=== PATIENT | female | born 1930 | race Caucasian/White ===

== ENCOUNTER 2016-09-16 20:55 | Inpatient (IN) | payer MEDICARE, OTHER ==
[~2016-09-16] VITALS: Ht 160 cm; Wt 59.4 kg
[~2016-09-16 20:55] MED LIST: BACI28.4 TOPICAL; HYDR-3479 PO; OXYM15MI4 NS
[2016-09-16 20:59] VITALS: BP 150/103; PULSE 72; RESP 32; O2SAT 95
--- NOTE | 2016-09-16 21:05 | ED.REPORT ---
HPI-Extremity Problem Upper Date of Service September 16, 2016 ED Provider: Dr. Rooney Pt is an 86 y/o female w/ a hx of Parkinson's disease, multiple falls, presenting to the ED via EMS with family due to left upper arm injury which occurred this evening. The family reports that the patient fell likely onto her left arm this evening and medics report an obvious deformity to the left humerus. She does not take anticoagulants. Personal history unable to be obtained secondary to patient condition. Nursing Notes Stated Complaint: LEFT SHOULDER DEFORMITY/FALL Chief Complaint: Extremity Trauma Nursing Notes Reviewed: Yes Allergies: Coded Allergies: alprazolam (Verified Allergy, Unknown, 09/16/16) Scheduled ([domperidone]) 10 MG PO MORNING Aspirin (Aspirin) 325 Mg Tablet 325 MG PO DAILY Atorvastatin (Lipitor) 40 Mg Tablet 40 MG PO DAILY Carbidopa/Levodopa 25-100 mg (Sinemet 25-100 mg) 1 Each Tablet 2 TABLET PO MORNING Carbidopa/Levodopa 25-100 mg (Sinemet 25-100 mg) 1 Each Tablet 1.5 TABLET PO TID Carbidopa/Levodopa 25-100 mg (Sinemet 25-100 mg) 1 Each Tablet 1 TABLET PO HS Donepezil (Donepezil) 5 Mg Tablet 5 MG PO HS Gabapentin (Gabapentin) 100 Mg Capsule 200 MG PO TID Mirtazapine (Mirtazapine) 15 Mg Tablet 15 MG PO HS Pantoprazole DR (Pantoprazole DR) 20 Mg Tablet.dr 20 MG PO DAILY Polyethylene Glycol 3350 (Miralax) 17 Gm Powd.pack 17 GM PO DAILY Miscellaneous Medications Cholecalciferol (Vitamin D3) (Vitamin D3) 1,000 Unit Tab.chew 1,000 UNIT PO General Time Seen by MD: 21:04 Chief Complaint Shoulder injury left Hx Obtained From: Patient, Other family..., EMS Arrived By: Ambulance Onset Occurred: 1 - 4 hours ago Symptom Duration: Since onset Location: : Arm left Quality: Painful Severity: Current: Severe Severity: Maximum: Severe Exacerbated by: Range of motion Past Medical History Past Medical History Parkinson's disease Colon CA s/p bowel resection Past Surgical History Bowel resection - 3 subsequent abdominal surgeries - unspecified Mastectomy Hysterectomy Smoking History Never Smoker Social History Alcohol Use: "Social" Review of Systems Musculoskeletal: Reports: Extremity pain, Extremity swelling Skin: Reports Bruising Complete sys rev & neg: except as marked. Physical Exam Initial Vital Signs Vital Signs (First) Date Time Temp Pulse Resp B/P Pulse Ox O2 Delivery O2 Flow Rate FiO2 09/16/16 20:59 36.9 72 32 150/103 95 Nasal Cannula 2 Initial VS: Reviewed, Vital signs abnormal Head / Eyes: Atraumatic, Normocephalic, PERRL ENT: Mucous membranes moist, Conjunctiva normal, No scleral icterus Neck: Supple, Full range of motion Respiratory: Breath sounds normal, Clear to auscultation, No respiratory distress Cardiovascular: Regular rate & rhythm, Heart sounds normal, Intact distal pulses Abdomen / GI: Soft, Non-tender Skin: Warm, Dry, No cyanosis Psychiatric: Mood/affect normal, Behavior normal General/Constitutional: Awake, Cooperative, Not toxic appearing Distress / Hydration: Positive: Distress moderate Appearance / Presentation: Positive: Uncomfortable Uncontrollably moving about in bed aggravating shoulder injury. Much improved after pain management. Sedated but arousable, no longer thrashing. Upper Extremity / MS: Neurologic intact, Vascular intact Huge hematoma and deformity over upper left arm. Neurologic: No motor deficits, No sensory deficits Grossly parkinsonian Interpretation & Diagnostics X-Ray Interpretation Xray Interpretation: IMPRESSION: Complex comminuted mildly angulated proximal left humeral metaphyseal fracture with large butterfly fragment. No glenohumeral joint involvement. Dictated by: Nicolas Johns M.D. on 09/16/2016 at 21:34 Approved by: Nicolas Johns M.D. on 09/16/2016 at 21:36 Study Performed: 2 views X-Ray Ordered: Humerus left Interpretation / Wet Read by: Interpret - Radiologist Xray Interpretation: S/p reduction and splinting Mildy reduction of the left humeral fracture Study Performed: 2 views X-Ray Ordered: Humerus left Interpretation / Wet Read by: Wet read ED physician Procedures Reduction Left Humerus Time: 21:25 Procedure Performed by: ED physician Consent / Setup / Site Prep: Consent from spouse, Time-out performed, Oxygen administered, Pulse oximeter applied, court recording monitor applied, Hand hygiene observed, Stand sterile technique Procedural Sedation/Analgesia: Analgesia: Dilaudid Post-Procedure / Complications: NV intact post-procedure, Procedure successful , X-ray partial reduction, No complications, Tolerated procedure well, Patient stable Splint Application - Fx Mgt Time: 21:25 Procedure Performed by: ED physician Precise Anatomic Location: Left humerus Type of Immobilization: Coaptation Definitive Fracture Care: Performed by me Post-Procedure / Complications: Cap refill normal, Post splint vascular nl, Post splint neuro nl, Condition improved, Tolerated procedure well, Patient stable Re-Eval/Medical Decision Med Decision/Clinical Course 86-year-old severe parkinsonism presents after a ground-level mechanical fall with obvious fracture to the upper left arm. She is unable to control her movements is grinding bone ends repetitively, unable to be restrained at this point. She was given pain meds for early after arrival with improvement and is no longer moving the bone ends vigorously. There is a substantial hematoma in the upper arm. X-ray was obtained and shows a comminuted fracture of the upper humerus. A coaptation splint was placed and some reduction achieved. Distal neurovascular were intact pre-and post. X-ray shows still some posterior angulation but fairly good lateral alignment and length alignment. Hope was to get her home to [place] for surgical treatment in [place], but she remains in significant pain or oversedated with very little clinical status in between those states. Family is unable to manage her given her severe gait disturbance motion disturbance and ongoing pain needs. Admitted now for pain control and consideration of surgical therapy this morning. Consultation to orthopedic surgery in the morning. Admitted to medicine service. Re-Evaluation/Progress #1: Time of Eval: 23:45 Re-Evaluation/Progress Note: Pt rechecked. Pt sleeping comfortably. Informed family of plan to increase length of splint. Re-Evaluation/Progress #2: Time of Eval: 00:30 Re-Evaluation/Progress Note: Splint placement improved. Re-Evaluation/Progress #3: Time of Eval: 01:18 Re-Evaluation/Progress Note: Pt rechecked. Informed family of need for admission. Family understands and agrees with plan for admission. All questions addressed. 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 I, Dr. Rooney personally performed the history, physical exam and medical decision-making; I reviewed and confirmed the accuracy of the information in the transcribed note. Signed by Jos Burnett, 09/16/162114 Samuel Rooney MD September 16, 2016 21:05 DANIEL CHAN September 16, 2016 21:09
[2016-09-16] MEDS ORDERED: HYDROmorphone 1 mg/mL Inj IVPUSH ONE (21:10)
[2016-09-16] MEDS ORDERED: Ondansetron 2 mg/mL 2 mL Inj IVPUSH ONE (21:10)
[2016-09-16] MEDS: HYDROmorphone 0.5 mg/0.5 mL iSecure Syringe IVPUSH PRN (21:22)
--- NOTE | 2016-09-16 21:43 | DRSVH ---
PROCEDURE: X-RAY LEFT HUMERUS, MINIMUM TWO VIEWS ([id number]) INDICATIONS: fall TECHNIQUE: 2 views of the humerus were acquired. COMPARISON: None. FINDINGS: Bones: Complex comminuted proximal left humeral metaphyseal fracture with posterior lateral attenuati on of the distal most fragment. Large mildly displaced butterfly fragment. No extension to the glenoh umeral joint which remains grossly intact. Osteopenia. Soft tissues: No suspicious soft tissue calcifications. IMPRESSION: Complex comminuted mildly angulated proximal left humeral metaphyseal fracture with large butterfly fragment. No glenohumeral joint involvement. Dictated by: Nicolas Johns M.D. on 09/16/2016 at 21:34 Approved by: Nicolas Johns M.D. on 09/16/2016 at 21:36
[2016-09-16 22:01] VITALS: BP 118/45; PULSE 80; RESP 9; O2SAT 98
[2016-09-17] VITALS (9 sets, daily range): BP systolic 105–161; BP diastolic 50–77; PULSE 74–90; RESP 14–19; O2SAT 90–98
[2016-09-17] MEDS ORDERED: Polyethylene Glycol (PEG) 17 Gm Powder PO PRN (01:30)
[2016-09-17] MEDS ORDERED: Alum-Mag Hydrox-Simeth 30 mL Suspension PO PRN (01:30)
[2016-09-17] MEDS ORDERED: Ondansetron 2 mg/mL 2 mL Inj IVPUSH PRN (01:30)
--- NOTE | 2016-09-17 02:16 | PCM.HPMED ---
Subjective Date of Service September 17, 2016 Primary Provider: Admitting Physician: Sarthak Vogel MD Primary Care Physician: Other,Physician Attending Physician: Sarthak Vogel MD Chief Complaint: GLF with fracture L Humerus. History of Present Illness: Pt is an 86 y/o female w/ a hx of Parkinson's disease, multiple falls, presenting to the ED via EMS with family due to left upper arm injury which occurred this evening. The family reports that the patient fell likely onto her left arm this evening and they report an obvious deformity to the left humerus. She does not take anticoagulants. In the emergency department patient's vitals were as follows; temperature 36.9 C , pulse 72, respiratory rate 32, blood pressure 150/103, pulse ox 95 on 2 L nasal cannula. No labs were taken. Left humerus x-ray was taken showing a Complex comminuted mildly angulated proximal left humeral metaphyseal fracture with large butterfly fragment. No glenohumeral joint involvement. Patient was given IV Dilaudid for pain control and Zofran for nausea. Review of Systems: A comprehensive review of systems was conducted with the patient and found to be negative except as above in the History of Present Illness. Allergies Coded Allergies: alprazolam (Verified Allergy, Unknown, 09/16/16) Home Medications Sinemet (unsure dosage) 2 pills at 7 AM, one half pills at 10 AM, one half pills at 1 PM, one half pills at 5 PM, 1 pill at 9 PM Domeprazil 5 mg half tab at 9 PM Mirtazapine 5 mg half tab at 9 PM Gabapentin 100 mg 2 tabs at 7 AM, 2 tabs at 10 AM, 2 tabs at 9 AM Aspirin 325 one tablet and 7 AM, Domperione 10 mg 1 tab 7 AM MiraLAX one capsule in the morning Atorvastatin 40 mg 9 PM Pantoprazole 20 mg 7 AM Vitamin D one pill in the morning PMH Parkinson's TIA GERD Colon cancer with resection Surgical History Hysterectomy in 76 Mastectomy in 84 Colon resection in Bowel surgery 2002 for scar tissue Bowel surgery in 2004 for scar tissue Neuro stimulator implanted 2008 Bowel surgery 2009 for scar tissue Family History Could not report. Social History Hx Alcohol Use: Yes (1/2 glass of wine a day) Hx Substance Use: No Smoking Status: Never Smoker Exam Vital Signs Vital Sign - Last Date Time Temp Pulse Resp B/P Pulse Ox O2 Delivery O2 Flow Rate FiO2 5/24/17 02:04 79 18 117/60 95 Room Air 09/16/16 22:01 2 09/16/16 20:59 36.9 Exam General: Frail elderly lady lying in bed currently in no acute distress, drowsy , appropriately interactive intermittently. HEENT: Normocephalic, atraumatic. External ears without defect. Pupils equal, round, and reactive to light and accommodation. Anicteric sclerae, moist conjunctivae, and no lid lag. Oropharynx free of erythema and cobble stoning with moist mucosa. Neck: Supple with full range of motion. No jugular venous distension. No bruits. No lymphadenopathy or thyromegaly. Cardiovascular: Regular rate and rhythm with no murmurs, rubs, or gallops appreciated Pulmonary: Clear to auscultation bilaterally with no crackles, wheezes, or rhonchi. Normal respiratory effort with no use of accessory muscles. Abdomen: Bowel tones present. Soft, nontender, nondistended. No hepatosplenomegaly or masses appreciated. Extremities: No clubbing, cyanosis, edema, or lymphadenopathy appreciated. Left extremity splinted and wrapped. Skin: Normal temperature, turgor, and texture; no rash, ulcers, or subcutaneous nodules appreciated. Neurological: Cranial nerves grossly intact. Normal muscle strength, tone, and bulk. Reflexes, coordination, and sensory function within normal limits. No known gait impairment. Psychiatric: Normal mood and affect. Alert and oriented to person, place, and time. Assessment & Plan Pt is an 86 y/o female w/ a hx of Parkinson's disease, multiple falls, presenting to the ED via EMS with family due to left upper arm injury which occurred this evening. The family reports that the patient fell likely onto her left arm this evening and they report an obvious deformity to the left humerus. She does not take anticoagulants. Patient's states that fell and landed on the carpet as she normally does however this time she broke her arm. She ambulates with a walker however she was not using it at the time. Patient's denies recent illness, fever, chills, cough, nausea, vomiting, diaphoresis, chest pain, shortness of breath, abdominal pain, change in bowel or bladder function. Patient is admitted and admitted under observation status. Her was adamant that if by morning patient is less groggy and able to be transported that he would prefer being seen in [place] by orthopedic surgery. The lactic acid is drawn glad to 2.4 mg nightly redraw 1. Complex comminuted left proximal left humeral metaphyseal fracture, present on admission. active. - Left humerus x-ray was taken showing a Complex comminuted mildly angulated proximal left humeral metaphyseal fracture with large butterfly fragment. No glenohumeral joint involvement. - Reduced, wrapped and splinted in the ED. - Patient was given IV Dilaudid for pain control. - 2. Parkinson's disease, present on admission. Active. - Patient to continue home meds. - Deep brain stimulator in place with battery pack. 3. History of TIA. - Continue home aspirin and statin. 4. History of colon cancer with resection. 5. History of gastroesophageal reflux disease. Acetaminophen for mild pain when necessary. Bowel regimen Senna and MiraLAX scheduled and PRN. Zofran when necessary for nausea and vomiting. SubQ heparin held for now. SCDs in place. High-risk medications: IV Dilaudid. Disposition: Patient has been admitted under observation status. Patient will likely be discharged voluntarily tomorrow morning, however is dependent upon ambulatory status and mobility. Discharge under the care of to [place] most likely tomorrow. Pain Evaluation: Adequate Pain Control Resuscitation Status: CPR: Attempt Resuscitation Attending Statement The patient was seen and examined together with Dr. Ames on 09/17 and I agree with the history, exam and plan as outlined in the note above. PEÑA AMES DO September 17, 2016 02:15 Sarthak Vogel MD September 17, 2016 03:33
[2016-09-17] MEDS ORDERED: CHOL10008 PO (03:14)
[2016-09-17] MEDS ORDERED: LIP40 PO (03:14)
[2016-09-17] MEDS ORDERED: ASPI325T32 PO (03:14)
[2016-09-17] MEDS ORDERED: domperidone PO (03:14)
[2016-09-17] MEDS ORDERED: MIRT15TA6 PO (03:14)
[2016-09-17] MEDS ORDERED: GABA-500 PO (03:14)
[2016-09-17] MEDS ORDERED: POLY17PO6 PO (03:14)
[2016-09-17] MEDS ORDERED: DONE5TAB30 PO (03:14)
[2016-09-17] MEDS ORDERED: PANT20TA2 PO (03:14)
[2016-09-17] MEDS ORDERED: LVCR25100 PO ×3 (03:14)
[2016-09-17 07:23] LABS: BASOPHILS % (AUTO) 0.4 % (0-3); EOSINOPHILS % (AUTO) 0.2 % (0-5); MONOCYTES % (AUTO) 15.9 % (4-12); Mean Corpuscular Hemoglobin 32.7 pg (27.0-35.0); Mean Corpuscular Volume 98.4 fL (81-100); Platelet Count 159 bil/L (150-400)
[2016-09-17 07:36] LABS: INR 0.93 ratio
[2016-09-17] MEDS: HYDROmorphone 0.5 mg/0.5 mL iSecure Syringe IVPUSH PRN ×4 (08:04→17:43)
--- NOTE | 2016-09-17 08:13 | PCM.CONSUR ---
Subjective Date of Service: September 17, 2016 History of Present Illness Coreen Rouse is an 86 y/o female w/ a hx of Parkinson's disease, multiple falls , presenting to the ED via EMS with family due to left upper arm injury which occurred yesterday after falling from standing. This fall was unwitnessed and orthopedics was consulted given her left proximal humerus fracture. The patient states that their pain is a sharp in nature and mild/moderate in severity localized to the anterior and aspect of the left shoulder without radiation. Moreover, the pain is exacerbated by activities, especially with movement. Rest seems to improve the symptoms. There is no reports numbness, tingling, or weakness to the affected distal upper extremity. The patient denies any fever, chills, nausea, vomiting, chest pain, shortness of breath, or calf tenderness. Previous treatment has included: Coaptation splint and sling placed in ER Work/hobbies/sports include: Presents with Reason for Consultation left shoulder pain Allergy Allergies: Coded Allergies: alprazolam (Verified Allergy, Unknown, 09/16/16) Medications ([domperidone]) 10 MG PO MORNING (Reported) Last Taken: 10 MG on 09/16/16 07 Aspirin (Aspirin) 325 Mg Tablet 325 MG PO DAILY (Reported) Last Taken: 325 MG on 09/16/16 0700 Atorvastatin (Lipitor) 40 Mg Tablet 40 MG PO DAILY (Reported) Last Taken: 40 MG on 09/17/16 0100 Carbidopa/Levodopa 25-100 mg (Sinemet 25- 100 mg) 1 Each Tablet 2 TABLET PO MORNING (Reported) Last Taken: 2 tab on 09/16/16 07 Carbidopa/Levodopa 25-100 mg (Sinemet 25- 100 mg) 1 Each Tablet 1.5 TABLET PO TID (Reported) Last Taken: Unknown Dose on 09/16/16 Carbidopa/Levodopa 25-100 mg (Sinemet 25-100 mg) 1 Each Tablet 1 TABLET PO HS (Reported) Last Taken: 1 tab on 09/17/16 010 Cholecalciferol (Vitamin D3) (Vitamin D3) 1,000 Unit Tab.chew 1,000 UNIT PO (Reported) Last Taken: 1,000 IU on 09/16/16 07 Donepezil (Donepezil) 5 Mg Tablet 5 MG PO HS (Reported) Last Taken: 5 MG on 09/17/1699 Gabapentin (Gabapentin) 100 Mg Capsule 200 MG PO TID (Reported) Last Taken: 200 MG on Unknown Date & Time Mirtazapine (Mirtazapine) 15 Mg Tablet 15 MG PO HS (Reported) Last Taken: 15 MG on 09/17/[address] (Pantoprazole DR) 20 Mg Tablet.dr 20 MG PO DAILY (Reported) Last Taken: Unknown Dose on 09/16/16699 Polyethylene Glycol 3350 (Miralax) 17 Gm Powd.pack 17 GM PO DAILY (Reported) Last Taken: 17 G on 09/16/16699 Discontinued Medications Bacitracin (Bacitracin Ointment) 28.4 Gm Oint...g. 1 APPLIC TOPICAL PRN PRN PRN For Laceration Prescribed by: ABDIFATAH GALLARDO DO Hydrocodone/Acetaminophen (Vicodin 5-300 mg Tablet) 1 Each Tablet 1 EACH PO Q6 PRN PRN For Pain Prescribed by: ABDIFATAH GALLARDO DO Oxymetazoline HCl (Afrin) 15 Ml Mist 1-2 SPRAY NS BID Maxium 3 days use Prescribed by: ABDIFATAH GALLARDO DO Past Surgical History Surgeries: Yes (unknown type of bowel surgery 2002, 2004, 2009, mastectomy, hysterectomy) Patient/Family Past Surgical: Positive for:: Accept Blood Products? PMH HEENT History Other HEENT Pertinent History: unknown pt unable to answer questions. ENT problems not reported by family Cardiovascular History Cardiovascular History: Denies:: Congestive Heart Failure Hypertension Other Cardiac History: unknown pt unable to answer questions Respiratory Respiratory History: Denies:: Tuberculosis Other Resp Pertinent History: unknown pt unable to answer questions Neurological History Hx Neurologic Problems?: Yes Neurological History: Positive for:: CVA Parkinson's Disease Gastrointestinal History HX of GI Problems?: Yes Other GI Pertinent History: 3 different bowel surgeries, type unknown. colon resection related to colan CA Genitourinary History Other Pertinent History?: unknown pt unable to answer questions Female/Male History Reproductive History Female: Denies: Currently ? Psycho Social History Other Psych Pertinent History?: unknown pt unable to answer questions Other History Other History: Positive for:: Cancer (colon CA) Diabetes: No Social History Smoking Status: Never Smoker Objective Exam Vital Signs & I/O Vital Sign- Last 8 Hours Date Time Temp Pulse Resp B/P Pulse Ox O2 Delivery O2 Flow Rate FiO2 09/17/16 05:49 36.7 75 18 122/64 93 Room Air 09/17/16 02:29 36.7 79 18 161/70 98 Nasal Cannula 2.00 09/17/16 02:04 79 18 117/60 95 Room Air 09/17/16 01:13 90 14 109/56 98 Room Air Intake and Output- Last 8 Hour 09/17/16 Cumulative From/Thru 07:00 09/16/16 20:59 - 09/17/16 06:02 Intake Total 0 ml 0 ml Balance 0 ml 0 ml Intake Oral 0 ml 0 ml # Voids 1 1 Lab & Micro Results Laboratory Tests Test 09/17/16 06:55 White Blood Count 8.3th/mm3 (3.8-10.1) Red Blood Count 3.06mil/mm3 (3.90-5.20) Hemoglobin 10.0g/dL (12.0-15.6) Hematocrit 30.1% (35.0-46.0) Mean Corpuscular Volume 98.4fL (81-100) Mean Corpuscular Hemoglobin 32.7pg (27.0-35.0) Mean Corpuscular Hemoglobin Concent 33.2% (32.0-37.0) Red Cell Distribution Width 15.2% (12.3-15.4) Platelet Count 159bil/L (150-400) Neutrophils (%) (Auto) 73.0% (40-74) Lymphocytes (%) (Auto) 10.3% (14-46) Monocytes (%) (Auto) 15.9% (4-12) Eosinophils (%) (Auto) 0.2% (0-5) Basophils (%) (Auto) 0.4% (0-3) Prothrombin Time 9.9sec (8.1-12.5) Prothromb Time International Ratio 0.93ratio Sodium Level 144mEq/L (134-144) Potassium Level 4.5mEq/L (3.5-5.2) Chloride Level 108mEq/L (97-108) Carbon Dioxide Level 22mmol/L (18-29) Blood Urea Nitrogen 23mg/dL (8-27) Creatinine 0.82mg/dL (0.57-1.00) Estimat Glomerular Filtration Rate 95mL/min (>59) Glucose Level 119mg/dL (60-99) Calcium Level 8.4mg/dL (8.5-10.1) Result Diagram: 09/17/1665409/17/16654 Review of Systems: Constitutional: Negative, except as otherwise mentioned in the history above. Ophthalmologic: Negative, except as otherwise mentioned in the history above. Cardiovascular: Negative, except as otherwise mentioned in the history above. Respiratory: Negative, except as otherwise mentioned in the history above. Gastrointestinal: Negative, except as otherwise mentioned in the history above. Genitourinary: Negative, except as otherwise mentioned in the history above. Musculoskeletal: Negative, except as otherwise mentioned in the history above. Neurological: Negative, except as otherwise mentioned in the history above. Psychiatric: Negative, except as otherwise mentioned in the history above. Hematologic/Lymphatic: Negative, except as otherwise mentioned in the history above. Allergic/Immunologic: Negative, except as otherwise mentioned in the history above. H&P Surgical Exam Exam Musculoskeletal: CONST: WD,WN, NAD, A+OX2 OCULAR: EOMI, no conjunctivitis/icterus ENT: no deformities, scars or lesions CARDIAC: Pulse is regular. No cyanosis,clubbing,edema RESP: regular,unlabored MSK: normal light touch median, ulnar, radial, lateral antebrachial, axillary nerve distribution. Intact AIN, PIN, u, r, ax motor. 2+ r pulse Left SHOULDER - scars, moderate swelling, - atrophy or asymmetry. TTP anteriorly , proximal ROM R/ L Strength/Pain Different examination +painful arc, + pain with passive stretch, + pseudoparalysis, + crepitus Signs Deferred Additional Information Two-view x-ray of the left shoulder demonstrates comminuted proximal humerus and proximal shaft fracture Assessment & Plan Assessment Left proximal humerus/shaft fracture VTE Mechanical Devices: Intermittant Pneumatic CD Plan: Nonweightbearing left upper extremity Continue coaptation splint and sling Return to clinic in 1 week with x-rays We discussed surgical and nonsurgical options Family lives in [place] and will follow up with orthopedic surgeon within a week with follow-up x-rays We have offered follow-up here as well as an option We discussed bracing versus surgical intervention if alignment and rotation is not well-maintained Pain control Continue medical management per primary Please call with questions Resuscitation Status: CPR: Attempt Resuscitation Samuel Shane MD September 17, 2016 08:12
[2016-09-17] MEDS: Polyethylene Glycol (PEG) 17 Gm Powder PO SCH (08:30)
[2016-09-17] MEDS: Pantoprazole 20 mg ER24 Tablet PO SCH (08:44)
--- NOTE | 2016-09-17 09:28 | DRSVH ---
PROCEDURE: X-RAY LEFT HUMERUS, MINIMUM TWO VIEWS ([id number]) INDICATIONS: post splint application TECHNIQUE: 2 views of the humerus were acquired. COMPARISON: [facility], , XR HUMERUS 2VW LT, 09/16/2016, 21:15. FINDINGS: Bones: There is a comminuted fracture of the left humeral neck and proximal shaft with displacement a nd angulation, unchanged. No suspicious bony lesions. Soft tissues: No suspicious soft tissue calcifications. IMPRESSION: Comminuted humeral neck and proximal shaft fracture. Dictated by: Haroldo Hanson M.D. on 09/17/2016 at 9:25 Approved by: Haroldo Hanson M.D. on 09/17/2016 at 9:27
[2016-09-17] MEDS: DOMPERIDONE 10 MG PO SCH (12:39)
[2016-09-17] MEDS: Acetaminophen IV 1,000 MG in IV Premix 1 EACH IV SCH ×2 (13:35→19:57)
[2016-09-18] MEDS: HYDROmorphone 1 mg/mL Inj IVPUSH PRN ×4 (00:27→22:05)
[2016-09-18] MEDS: Acetaminophen IV 1,000 MG in IV Premix 1 EACH IV SCH ×3 (02:35→15:15)
[2016-09-18 04:48] VITALS: BP 115/59; PULSE 80; RESP 18; O2SAT 96
[2016-09-18] MEDS: Polyethylene Glycol (PEG) 17 Gm Powder PO SCH (08:30)
[2016-09-18] MEDS: DOMPERIDONE 10 MG PO SCH (08:48)
[2016-09-18] MEDS: Pantoprazole 20 mg ER24 Tablet PO SCH (08:57)
[2016-09-18 09:49] VITALS: BP 122/80; PULSE 68; RESP 18; O2SAT 97
--- NOTE | 2016-09-18 13:00 | PCM.PNMED ---
Subjective Date of Service September 18, 2016 Subjective Continues to have left shoulder pain. Exam Vital Signs Vital Sign - Last Date Time Temp Pulse Resp B/P Pulse Ox O2 Delivery O2 Flow Rate FiO2 09/18/16 09:49 36.8 68 18 122/80 97 Room Air 09/17/16 02:29 2.00 Intake and Output 09/17/16 09/17/16 09/18/16 Cumulative From/Thru 15:00 23:00 07:00 09/16/16 20:59 - 09/18/16 04:48 Intake Total 118 ml 50 ml 168 ml Output Total 710 ml 650 ml 1360 ml Balance -592 ml -600 ml -1192 ml Intake Oral 118 ml 50 ml 168 ml Output Urine Total 710 ml 650 ml 1360 ml # Voids 1 # Bowel Movements 0 0 0 Exam General: Frail elderly lady lying in bed currently in no acute distress, drowsy , appropriately interactive intermittently. HEENT: Normocephalic, atraumatic. External ears without defect. Pupils equal, round, and reactive to light and accommodation. Anicteric sclerae, moist conjunctivae, and no lid lag. Oropharynx free of erythema and cobble stoning with moist mucosa. Neck: Supple with full range of motion. No jugular venous distension. No bruits. No lymphadenopathy or thyromegaly. Cardiovascular: Regular rate and rhythm with no murmurs, rubs, or gallops appreciated Pulmonary: Clear to auscultation bilaterally with no crackles, wheezes, or rhonchi. Normal respiratory effort with no use of accessory muscles. Abdomen: Bowel tones present. Soft, nontender, nondistended. No hepatosplenomegaly or masses appreciated. Extremities: No clubbing, cyanosis, edema, or lymphadenopathy appreciated. Left extremity splinted and wrapped. Swelling and tenderness on left shoulder. Skin: Normal temperature, turgor, and texture; no rash, ulcers, or subcutaneous nodules appreciated. Neurological: Cranial nerves grossly intact. Normal muscle strength, tone, and bulk. Reflexes, coordination, and sensory function within normal limits. No known gait impairment. Psychiatric: Normal mood and affect. Alert and oriented to person, place, and time. IVs and Medications Medications Reviewed: Medications were reviewed in detail Lab and Diagnostics Result Diagram: 09/17/16 0655 09/17/16 0655 X-Rays, CTs and MRIs PROCEDURE: X-RAY LEFT HUMERUS, MINIMUM TWO VIEWS ([id number]) INDICATIONS: post splint application TECHNIQUE: 2 views of the humerus were acquired. COMPARISON: [facility], CR, XR HUMERUS 2VW LT, 09/16/2016, 21:15. FINDINGS: Bones: There is a comminuted fracture of the left humeral neck and proximal shaft with displacement and angulation, unchanged. No suspicious bony lesions. Soft tissues: No suspicious soft tissue calcifications. IMPRESSION: Comminuted humeral neck and proximal shaft fracture. Dictated by: Haroldo Hanson M.D. on 09/17/2016 at 9:25 PROCEDURE: X-RAY LEFT HUMERUS, MINIMUM TWO VIEWS ([id number]) INDICATIONS: fall TECHNIQUE: 2 views of the humerus were acquired. COMPARISON: None. FINDINGS: Bones: Complex comminuted proximal left humeral metaphyseal fracture with posterior lateral attenuation of the distal most fragment. Large mildly displaced butterfly fragment. No extension to the glenohumeral joint which remains grossly intact. Osteopenia. Soft tissues: No suspicious soft tissue calcifications. IMPRESSION: Complex comminuted mildly angulated proximal left humeral metaphyseal fracture with large butterfly fragment. No glenohumeral joint involvement. Dictated by: Nicolas Johns M.D. on 09/16/2016 at 21:34 Assessment & Plan Pt is an 86 y/o female w/ a hx of Parkinson's disease, multiple falls, presenting to the ED via EMS with family due to left upper arm injury which occurred this evening. The family reports that the patient fell likely onto her left arm this evening and they report an obvious deformity to the left humerus. She does not take anticoagulants. Patient's states that fell and landed on the carpet as she normally does however this time she broke her arm. She ambulates with a walker however she was not using it at the time. Patient's denies recent illness, fever, chills, cough, nausea, vomiting, diaphoresis, chest pain, shortness of breath, abdominal pain, change in bowel or bladder function. Patient is admitted and admitted under observation status. Her was adamant that if by morning patient is less groggy and able to be transported that he would prefer being seen in [place] by orthopedic surgery. The lactic acid is drawn glad to 2.4 mg nightly redraw #. Intractable pain due to Complex comminuted left proximal left humeral metaphyseal fracture, present on admission. active. - Left humerus x-ray was taken showing a Complex comminuted mildly angulated proximal left humeral metaphyseal fracture with large butterfly fragment. No glenohumeral joint involvement. - Reduced, wrapped and splinted in the ED. orthopedics evaluated and no surgery indicated - Patient was given IV Dilaudid for pain control. - Patient continues to have pain. #. Parkinson's disease, present on admission. Active. - Patient to continue home meds. - Deep brain stimulator in place with battery pack. #. History of TIA. - Continue home aspirin and statin. #. History of colon cancer with resection. #. History of gastroesophageal reflux disease. Acetaminophen for mild pain when necessary. Bowel regimen Senna and MiraLAX scheduled and PRN. Zofran when necessary for nausea and vomiting. SubQ heparin held for now. SCDs in place. High-risk medications: IV Dilaudid. Disposition: Patient has been admitted under inpatient status. Patient will likely be discharged voluntarily tomorrow morning, however is dependent upon ambulatory status and mobility. Discharge under the care of to [place] most likely tomorrow. discharge home tomorrow Patient will need follow-up with orthopedics in 1 week. Advised to set up appointment for next week with orthopedics in [place] [employer] Mechanical Devices: Intermittant Pneumatic CD Resuscitation Status: CPR: Attempt Resuscitation Cole Reynolds MD September 18, 2016 13:00
[2016-09-18 16:55] VITALS: BP 122/66; PULSE 72; RESP 18; O2SAT 97
[2016-09-18 19:26] VITALS: BP 113/57; PULSE 79; RESP 18; O2SAT 94
[2016-09-19 05:15] VITALS: BP 133/69; PULSE 78; RESP 17; O2SAT 99
[2016-09-19] MEDS: HYDROmorphone 1 mg/mL Inj IVPUSH PRN (05:40)
[2016-09-19] MEDS: Polyethylene Glycol (PEG) 17 Gm Powder PO SCH (08:30)
[2016-09-19] MEDS: Pantoprazole 20 mg ER24 Tablet PO SCH (08:58)
[2016-09-19] MEDS: DOMPERIDONE 10 MG PO SCH (09:00)
--- NOTE | 2016-09-19 09:00 | PCM.DIMED ---
Discharge Instructions Date of Service September 19, 2016 Dates of Hospitalization September 17, 2016 at 01:26 Discharge Diagnosis Discharge Diagnosis #. Intractable pain due to Complex comminuted left proximal left humeral metaphyseal fracture, present on admission. active. #. Parkinson's disease, present on admission. Active. #. History of TIA. #. History of colon cancer with resection. #. History of gastroesophageal reflux disease. Patient Instructions Patient Instructions you were hospitalized due to left shoulder fracture. Please continue Percocet for pain. Please follow-up with orthopedics Dr. Vargas thursday. Orthopedics instructions Nonweightbearing left upper extremity Continue coaptation splint and sling Follow-up with PCP in: 1 week Follow-up in: 1 week (with Dr Vargas thursday ) Cole Reynolds MD September 19, 2016 09:00
[2016-09-19] MEDS ORDERED: OXYC1TAB24 PO (09:01)
[2016-09-19 09:06] VITALS: BP 110/63; PULSE 77; RESP 20; O2SAT 97
--- NOTE | 2016-09-19 10:29 | PCM.DC.MED ---
Discharge Summary Date of Service September 19, 2016 Dates of Hospitalization Date of Hospital Admission September 17, 2016 at 01:26 Date of Discharge: September 19, 2016 Providers: Admitting Physician: Sarthak Vogel MD Primary Care Physician: Other,Physician Attending Physician: Sarthak Vogel MD Diagnosis at Time of Discharge Diagnosis at Time of Discharge #. Intractable pain due to Complex comminuted left proximal left humeral metaphyseal fracture, present on admission. active. #. Parkinson's disease, present on admission. Active. #. History of TIA. #. History of colon cancer with resection. #. History of gastroesophageal reflux disease. Consultations Orthopedics Procedures XRay, CTs & MRIs PROCEDURE: X-RAY LEFT HUMERUS, MINIMUM TWO VIEWS ([id number]) INDICATIONS: post splint application TECHNIQUE: 2 views of the humerus were acquired. COMPARISON: [facility], , XR HUMERUS 2VW LT, 09/16/2016, 21:15. FINDINGS: Bones: There is a comminuted fracture of the left humeral neck and proximal shaft with displacement and angulation, unchanged. No suspicious bony lesions. Soft tissues: No suspicious soft tissue calcifications. IMPRESSION: Comminuted humeral neck and proximal shaft fracture. Dictated by: Haroldo Hanson M.D. on 09/17/2016 at 9:25 PROCEDURE: X-RAY LEFT HUMERUS, MINIMUM TWO VIEWS ([id number]) INDICATIONS: fall TECHNIQUE: 2 views of the humerus were acquired. COMPARISON: None. FINDINGS: Bones: Complex comminuted proximal left humeral metaphyseal fracture with posterior lateral attenuation of the distal most fragment. Large mildly displaced butterfly fragment. No extension to the glenohumeral joint which remains grossly intact. Osteopenia. Soft tissues: No suspicious soft tissue calcifications. IMPRESSION: Complex comminuted mildly angulated proximal left humeral metaphyseal fracture with large butterfly fragment. No glenohumeral joint involvement. Dictated by: Nicolas Johns M.D. on 09/16/2016 at 21:34 Brief History per HPI Pt is an 86 y/o female w/ a hx of Parkinson's disease, multiple falls, presenting to the ED via EMS with family due to left upper arm injury which occurred this evening. The family reports that the patient fell likely onto her left arm this evening and they report an obvious deformity to the left humerus. She does not take anticoagulants. In the emergency department patient's vitals were as follows; temperature 36.9 C , pulse 72, respiratory rate 32, blood pressure 150/103, pulse ox 95 on 2 L nasal cannula. No labs were taken. Left humerus x-ray was taken showing a Complex comminuted mildly angulated proximal left humeral metaphyseal fracture with large butterfly fragment. No glenohumeral joint involvement. Patient was given IV Dilaudid for pain control and Zofran for nausea. Hospital Course Pt is an 86 y/o female w/ a hx of Parkinson's disease, multiple falls, presenting to the ED via EMS with family due to left upper arm injury which occurred this evening. The family reports that the patient fell likely onto her left arm this evening and they report an obvious deformity to the left humerus. She does not take anticoagulants. Patient's states that fell and landed on the carpet as she normally does however this time she broke her arm. She ambulates with a walker however she was not using it at the time. Patient's denies recent illness, fever, chills, cough, nausea, vomiting, diaphoresis, chest pain, shortness of breath, abdominal pain, change in bowel or bladder function. Patient is admitted and admitted under observation status. Her was adamant that if by morning patient is less groggy and able to be transported that he would prefer being seen in [place] by orthopedic surgery. The lactic acid is drawn glad to 2.4 mg nightly redraw #. Intractable pain due to Complex comminuted left proximal left humeral metaphyseal fracture, present on admission. active. - Left humerus x-ray was taken showing a Complex comminuted mildly angulated proximal left humeral metaphyseal fracture with large butterfly fragment. No glenohumeral joint involvement. - Reduced, wrapped and splinted in the ED. orthopedics evaluated and no surgery indicated - Patient was given IV Dilaudid for pain control. Discharged on Percocet. -Patient lives in [place] and will follow up with orthopedic surgeon Dr Vargas in [place] next Thursday #. Parkinson's disease, present on admission. Active. - Patient to continue home meds. - Deep brain stimulator in place with battery pack. #. History of TIA. - Continue home aspirin and statin. #. History of colon cancer with resection. #. History of gastroesophageal reflux disease. Disposition: Discharge home. will arrange home health service is [place] Condition on discharge stable Exam Vital Signs (Last) Date Time Temp Pulse Resp B/P Pulse Ox O2 Delivery O2 Flow Rate FiO2 09/19/16 09:06 36.8 77 20 110/63 97 Room Air 09/19/16 05:15 2.00 Exam General: Frail elderly lady lying in bed currently in no acute distress, drowsy , appropriately interactive intermittently. HEENT: Normocephalic, atraumatic. External ears without defect. Pupils equal, round, and reactive to light and accommodation. Anicteric sclerae, moist conjunctivae, and no lid lag. Oropharynx free of erythema and cobble stoning with moist mucosa. Neck: Supple with full range of motion. No jugular venous distension. No bruits. No lymphadenopathy or thyromegaly. Cardiovascular: Regular rate and rhythm with no murmurs, rubs, or gallops appreciated Pulmonary: Clear to auscultation bilaterally with no crackles, wheezes, or rhonchi. Normal respiratory effort with no use of accessory muscles. Abdomen: Bowel tones present. Soft, nontender, nondistended. No hepatosplenomegaly or masses appreciated. Extremities: No clubbing, cyanosis, edema, or lymphadenopathy appreciated. Left extremity splinted and wrapped. Swelling and tenderness on left shoulder. Skin: Normal temperature, turgor, and texture; no rash, ulcers, or subcutaneous nodules appreciated. Neurological: Cranial nerves grossly intact. Normal muscle strength, tone, and bulk. Reflexes, coordination, and sensory function within normal limits. No known gait impairment. Psychiatric: Normal mood and affect. Alert and oriented to person, place, and time. Test 09/17/16 06:55 White Blood Count 8.3th/mm3 (3.8-10.1) Red Blood Count 3.06mil/mm3 (3.90-5.20) Hemoglobin 10.0g/dL (12.0-15.6) Hematocrit 30.1% (35.0-46.0) Mean Corpuscular Volume 98.4fL (81-100) Mean Corpuscular Hemoglobin 32.7pg (27.0-35.0) Mean Corpuscular Hemoglobin Concent 33.2% (32.0-37.0) Red Cell Distribution Width 15.2% (12.3-15.4) Platelet Count 159bil/L (150-400) Neutrophils (%) (Auto) 73.0% (40-74) Lymphocytes (%) (Auto) 10.3% (14-46) Monocytes (%) (Auto) 15.9% (4-12) Eosinophils (%) (Auto) 0.2% (0-5) Basophils (%) (Auto) 0.4% (0-3) Prothrombin Time 9.9sec (8.1-12.5) Prothromb Time International Ratio 0.93ratio Sodium Level 144mEq/L (134-144) Potassium Level 4.5mEq/L (3.5-5.2) Chloride Level 108mEq/L (97-108) Carbon Dioxide Level 22mmol/L (18-29) Blood Urea Nitrogen 23mg/dL (8-27) Creatinine 0.82mg/dL (0.57-1.00) Estimat Glomerular Filtration Rate 95mL/min (>59) Glucose Level 119mg/dL (60-99) Calcium Level 8.4mg/dL (8.5-10.1) Discharge Medications Discharge Medications ([domperidone]) 10 MG PO MORNING (Reported) Aspirin (Aspirin) 325 Mg Tablet 325 MG PO DAILY (Reported) Atorvastatin (Lipitor) 40 Mg Tablet 40 MG PO DAILY (Reported) Carbidopa/Levodopa 25-100 mg (Sinemet 25-100 mg) 1 Each Tablet 2 TABLET PO MORNING (Reported) Carbidopa/Levodopa 25-100 mg (Sinemet 25-100 mg) 1 Each Tablet 1.5 TABLET PO TID (Reported) Carbidopa/Levodopa 25-100 mg (Sinemet 25-100 mg) 1 Each Tablet 1 TABLET PO HS ( Reported) Donepezil (Donepezil) 5 Mg Tablet 5 MG PO HS (Reported) Gabapentin (Gabapentin) 100 Mg Capsule 200 MG PO TID (Reported) Mirtazapine (Mirtazapine) 15 Mg Tablet 15 MG PO HS (Reported) Pantoprazole DR (Pantoprazole DR) 20 Mg Tablet.dr 20 MG PO DAILY (Reported) Polyethylene Glycol 3350 (Miralax) 17 Gm Powd.pack 17 GM PO DAILY (Reported) As needed oxyCODONE-Acetaminophen 5-325 mg (oxyCODONE-Acetaminophen 5-325 mg) 1 Each Tablet 1 TAB PO Q4H PRN PRN For Pain Prescribed by: COLE REYNOLDS MD Miscellaneous Medications Cholecalciferol (Vitamin D3) (Vitamin D3) 1,000 Unit Tab.chew 1,000 UNIT PO ( Reported) Followup Plan Disposition: Home Patient Instructions you were hospitalized due to left shoulder fracture. Please continue Percocet for pain. Please follow-up with orthopedics Dr. Vargas next Thursday. Orthopedics instructions Nonweightbearing left upper extremity Continue coaptation splint and sling Follow-up with PCP in: 1 week Follow-up in: 1 week (with Dr Vargas thursday ) Time spent 35 minutes coordinating discharge and counseling Cole Reynolds MD September 19, 2016 10:29
== END 2016-09-19 11:06 | disposition home or self-care (01) | DRG 563 ==
LOC: SED 20:55 → OBSVTOIN 09-17 01:26 → OSC 09-17 01:26 → INTOOBSV 09-17 01:26
PROVIDERS: ADMIT Hospitalist; ATTEND Hospitalist
DX: S42.292A Other displaced fracture of upper end of left humerus, initial encounter for closed fracture (principal); G20 Parkinson's disease; Z86.73 Personal history of transient ischemic attack (TIA), and cerebral infarction without residual deficits; K21.9 Gastro-esophageal reflux disease without esophagitis; W18.30XA Fall on same level, unspecified, initial encounter; Z91.81 History of falling; Y92.019 Unspecified place in single-family (private) house as the place of occurrence of the external cause; Z85.038 Personal history of other malignant neoplasm of large intestine; G89.11 Acute pain due to trauma